=== PATIENT | male | born 1985 | race Two or more races ===

== ENCOUNTER 2020-09-13 00:09 | Emergency (ER) | payer OTHER ==
[~2020-09-13] VITALS: Ht 175.3 cm; Wt 87.3 kg
[2020-09-13] MEDS ORDERED: HYDROcodone/APAP 5/325 TABLET ONE (00:45)
[2020-09-13] MEDS ORDERED: IBUPROFEN 600 MG TABLET ONE (00:45)
[2020-09-13] MEDS ORDERED: LIDOCAINE-MPF 1%, 5ML ONE (00:46)
[2020-09-13] MEDS ORDERED: HYDROcodone/APAP 5/325 TABLET PO PRN (01:00)
[2020-09-13] MEDS ORDERED: LIDOCAINE-MPF 1%, 5ML INFIL ONE (01:00)
[2020-09-13] MEDS ORDERED: IBUPROFEN 600 MG TABLET PO ONE (01:00)
[2020-09-13] MEDS ORDERED: CLINDAMYCIN PMX 600MG/50ML 50 ML IVPB ONE (02:00)
[2020-09-13] MEDS ORDERED: MORPHINE SULFATE 4 MG/ML, 1ML ONE (02:00)
[2020-09-13] MEDS ORDERED: MORPHINE SULFATE 4 MG/ML, 1ML IV PRN (02:00)
[2020-09-13] MEDS ORDERED: CLINDAMYCIN PMX 600MG/50ML 50 ML ONE (02:01)
[2020-09-13 02:20] VITALS: BP 102/70
== END 2020-09-13 03:27 | disposition home or self-care (01) ==
LOC: ED 00:39
DX: S62.603B Fracture of unspecified phalanx of left middle finger, initial encounter for open fracture (principal); F17.210 Nicotine dependence, cigarettes, uncomplicated; X58.XXXA Exposure to other specified factors, initial encounter; Y93.89 Activity, other specified; Y92.89 Other specified places as the place of occurrence of the external cause; Y99.8 Other external cause status
CPT/HCPCS: 29130; 73130; 96365; 96375; 99284; 99406; J2270; 64450